=== PATIENT | male | born 1995 | race Caucasian/White ===

== ENCOUNTER 2017-10-17 03:44 | Emergency (ER) | payer OTHER, SELFPAY ==
[2017-10-17 05:36] LABS: #Eosinphils 0.5 thou/uL (0.0-0.7); #Lymphocytes 1.9 thou/uL (1.20-3.40); #Monocytes 0.4 thou/uL (0.11-0.59); #Neutrophils 2.1 thou/uL (1.40-6.50); %Basophils 0.7 % (0.0-1.0); %Eosinophils 9.2 % (0.0-10.0); %Lymphocytes 38.4 % (21.0-51.0); %Monocytes 8.6 % (0.0-10.0); %Neutrophils 43.1 % (42.0-75.0); Hemoglobin 14.9 g/dL (14.0-18.0); Mean Corpuscular HGB CONC 32.9 g/dL (32.0-36.0); Mean Corpuscular Hemoglobin 29.6 pg (27.0-31.0); Platelet Count 251 thou/uL (130-400); RBC Distribution Width 11.2 % (11.5-14.5); Red Blood Cell (RBC) Count 5.04 mill/uL (4.70-6.10); White Blood Cell (WBC) Count 4.9 thou/uL (4.8-10.8)
[2017-10-17 05:48] LABS: Acetaminophen Less than 6.0 mcg/mL (10.0-30.0); Alcohol Less than 10 mg/dL (Less than 10); Salicylate Less than 8.0 mg/dL (15.0-30.0)
[2017-10-17 05:50] LABS: ALT (SGPT) 28 U/L (8-55); AST (SGOT) 22 U/L (5-34); Albumin 4.5 g/dL (3.5-5.0); Alkaline Phosphatase 87 U/L (40-150); Anion Gap 13 mmol/L (10-20); BUN (Urea Nitrogen) 9 mg/dL (8.9-20.6); Bilirubin, Total 0.3 mg/dL (0.2-1.2); Calc. Creatinine Clearance 0 mL/min (70-130); Calcium 9.2 mg/dL (7.8-10.44); Carbon Dioxide 24 mmol/L (22-29); Chloride 107 mmol/L (98-107); Estimated GFR-MDRD Greater than 90; Globulin 2.6 g/dL (2.4-3.5); Glucose 96 mg/dL (70-105); Potassium 3.5 mmol/L (3.5-5.1); Protein, Total 7.1 g/dL (6.0-8.3); Sodium 140 mmol/L (136-145)
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
== END 2017-10-17 09:46 | disposition home or self-care (01) ==
LOC: ERS 03:44
DX: F10.129 Alcohol abuse with intoxication, unspecified (principal)
CPT/HCPCS: 70450; 80053; 80307; 85025; 96360

== ENCOUNTER 2018-09-10 21:25 | Emergency (ER) | payer OTHER, SELFPAY | END 2018-09-10 22:08 | disposition home or self-care (01) | LOC: ERS 21:25 | DX: J06.9 Acute upper respiratory infection, unspecified (principal); J30.9 Allergic rhinitis, unspecified | CPT/HCPCS: 99281 ==

== ENCOUNTER 2018-09-11 14:31 | Emergency (ER) | payer OTHER ==
[2018-09-11] MEDS ORDERED: Acetaminophen 500 MG TAB ONE (14:57)
== END 2018-09-11 15:42 | disposition home or self-care (01) ==
LOC: ERS 14:31
DX: B08.5 Enteroviral vesicular pharyngitis (principal)
CPT/HCPCS: 87081; 87430; 99283

== ENCOUNTER 2018-09-12 05:37 | Emergency (ER) | payer OTHER | END 2018-09-12 05:46 | disposition home or self-care (01) | LOC: ERS 05:37 | DX: B08.5 Enteroviral vesicular pharyngitis (principal) | CPT/HCPCS: 99281 ==